=== PATIENT | female | born 1950 | race Asian ===

== ENCOUNTER 2016-05-05 14:29 | Outpatient (CLI) | payer OTHER | END 2016-05-05 20:19 | disposition home or self-care (01) | LOC: SMA 14:29 | PROVIDERS: ATTEND Family Medicine | DX: Z12.31 Encounter for screening mammogram for malignant neoplasm of breast (principal) | CPT/HCPCS: 77067; G0202 ==

== ENCOUNTER 2017-05-19 10:15 | Outpatient (CLI) | payer OTHER | END 2017-05-19 19:59 | disposition home or self-care (01) | LOC: SMA 10:15 | PROVIDERS: ATTEND Family Medicine | DX: Z12.31 Encounter for screening mammogram for malignant neoplasm of breast (principal) | CPT/HCPCS: 77067 ==